=== PATIENT | male | born 1975 | race African-American/Black ===

== ENCOUNTER 2023-04-27 13:58 | Emergency (ER) | payer MEDICAID ==
[~2023-04-27] VITALS: Ht 177.8 cm; Wt 81.0 kg
[~2023-04-27 13:58] MED LIST: HYDR-4001 MT
[2023-04-27 14:08] VITALS: TEMP 98.5; O2SAT 99
[2023-04-27] MEDS ORDERED: KETOROLAC 30MG/ML VIAL IM ONE (14:30)
[2023-04-27 15:28] VITALS: BP 196/115; PULSE 101; RESP 20
[2023-04-27] MEDS ORDERED: LIDO700A15 TP (15:33)
[2023-04-27] MEDS ORDERED: NAPR-1176 MT (15:33)
== END 2023-04-27 16:02 | disposition home or self-care (01) ==
LOC: ER 14:31
DX: M25.551 Pain in right hip (principal); D64.9 Anemia, unspecified; F41.9 Anxiety disorder, unspecified; J45.909 Unspecified asthma, uncomplicated; E11.9 Type 2 diabetes mellitus without complications; I10 Essential (primary) hypertension; F12.10 Cannabis abuse, uncomplicated; Z98.890 Other specified postprocedural states
CPT/HCPCS: 73502; 96372; 99283; J1885; Z7610